=== PATIENT | female | born 1990 | race Hispanic/Latino ===

== ENCOUNTER 2023-09-16 18:23 | Emergency (ER) | payer MEDICAID, OTHER ==
[~2023-09-16] VITALS: Ht 157.5 cm; Wt 111.1 kg
[2023-09-16 18:57] LABS: BASOPHILS # (AUTO) 0.04 K/uL (0.00-0.20); BASOPHILS % (AUTO) 0.3 % (0.0-5.0); EOSINOPHILS # (AUTO) 0.15 K/uL (0.00-0.70); EOSINOPHILS % (AUTO) 1.1 % (0.0-8.0); HEMATOCRIT 35.8 % (36-48); IMMATURE GRANULOCYTE ABSOLUTE 0.11 K/uL (0-1); LYMPHOCYTES # (AUTO) 4.6 K/uL (1.0-4.8); LYMPHOCYTES % (AUTO) 32.4 % (21.0-51.0); MEAN CORPUSCULAR HEMOGLOBIN 24.3 pg (27.0-33.0); MEAN CORPUSCULAR HGB CONC 31.8 g/dL (32.0-36.0); MEAN CORPUSCULAR VOLUME 76.3 fL (79-99); MONOCYTES # (AUTO) 0.7 K/uL (0.1-1.0); NEUTROPHILS # (AUTO) 8.5 K/uL (1.8-7.7); NEUTROPHILS % (AUTO) 60.4 % (40.0-77.0); PLATELET COUNT (AUTO) 473 K/uL (130-400); RED BLOOD CELL COUNT(AUTO) 4.69 MIL/uL (4.00-5.50); RED CELL DISTRIBUTION WIDTH 15.6 % (11.0-15.5); WHITE BLOOD COUNT (AUTO) 14.1 K/uL (4.8-10.8)
[2023-09-16 18:59] LABS: APPEARANCE,URINE CLEAR (CLEAR); BILIRUBIN,URINE NEGATIVE (NEGATIVE); COLOR,URINE YELLOW (YELLOW); GLUCOSE, URINE (UA) NEGATIVE (NEGATIVE); KETONES,URINE NEGATIVE (NEGATIVE); LEUKOCYTE ESTERASE ,URINE NEGATIVE Leu/uL (NEGATIVE); NITRATE,URINE NEGATIVE (NEGATIVE); OCCULT BLOOD,URINE SMALL (NEGATIVE); PH,URINE 5.5 (5.0-8.0); PROTEIN,URINE 20 mg/dL (NEGATIVE); UROBILINOGEN,URINE 0.2 mg/dL (0.2-1.0)
[2023-09-16 19:03] LABS: ADD UA MICROSCOPIC YES
[2023-09-16 19:04] LABS: CREATININE 0.7 mg/dL (0.5-1.0); POTASSIUM 3.6 mmol/L (3.5-5.1)
[2023-09-16 19:07] LABS: BACTERIA,URINE RARE /HPF (None Seen); MUCUS,URINE RARE LPF (None Seen); SQUAMOUS EPITHELIAL CELL,UR FEW /HPF (0-2)
[2023-09-16 19:19] VITALS: BP 123/54
[2023-09-16 21:24] VITALS: PULSE 78; RESP 16; O2SAT 99
== END 2023-09-16 21:34 | disposition home or self-care (01) ==
LOC: EDH 18:23
DX: R07.89 Other chest pain (principal); Z90.49 Acquired absence of other specified parts of digestive tract; Z98.890 Other specified postprocedural states
CPT/HCPCS: 36415; 71045; 80048; 81001; 84484; 85025; 93005